=== PATIENT | female | born 1985 | race Caucasian/White ===

== ENCOUNTER 2019-05-29 21:48 | Emergency (ER) | payer OTHER ==
[~2019-05-29] VITALS: Ht 162.6 cm; Wt 75.3 kg
[2019-05-29 21:52] VITALS: BP 149/87
--- NOTE | 2019-05-29 21:55 | NUR ---
TO ED LOBBY AWAITING BED IN DEPT.
[2019-05-29 22:15] LABS: BASOPHILS # (AUTO) 0.1 K/uL (0.00-0.22); BASOPHILS % (AUTO) 0.6 % (0.0-2.0); EOSINOPHILS # (AUTO) 0.1 K/uL (0-0.4); EOSINOPHILS % (AUTO) 1.1 % (0.0-4.0); HEMATOCRIT 33.9 % (36-48); HEMOGLOBIN 10.8 g/dL (12.0-16.0); LYMPHOCYTES # (AUTO) 3.8 K/uL (2.5-16.5); LYMPHOCYTES % (AUTO) 28.1 % (20.5-51.1); MEAN CORPUSCULAR HEMOGLOBIN 20 pg (27-31); MEAN CORPUSCULAR HGB CONC 32 g/dL (33-37); MEAN CORPUSCULAR VOLUME 62.8 fL (80-94); MONOCYTES # (AUTO) 1.1 K/uL (0.8-1.0); MONOCYTES % (AUTO) 8.1 % (1.7-9.3); NEUTROPHILS # (AUTO) 8.4 K/uL (1.8-7.7); NEUTROPHILS % (AUTO) 62.1 % (42.2-75.2); PLATELET COUNT (AUTO) 322 K/uL (140-450); RED CELL DISTRIBUTION WIDTH 15.4 % (11.6-13.7); WHITE BLOOD COUNT (AUTO) 13.6 K/uL (4.8-10.8)
[2019-05-29 22:23] LABS: ANION GAP 10.3 (8-16); CARBON DIOXIDE 27.3 mmol/L (21-32); CREATININE 0.7 mg/dL (0.6-1.3); POTASSIUM 3.6 mmol/L (3.5-5.1)
[2019-05-29 22:30] LABS: ALBUMIN 3.9 g/dL (3.4-5.0); TOTAL BILIRUBIN 0.3 mg/dL (0.0-1.0)
--- NOTE | 2019-05-29 22:42 | NUR ---
PT AMBULATED TO BED #6
[2019-05-29 22:52] LABS: APPEARANCE,URINE CLEAR (CLEAR); BILIRUBIN,URINE NEGATIVE (NEGATIVE); BLOOD, URINE TRACE-I (NEGATIVE); COLOR,URINE YELLOW (YELLOW); LEUKOCYTE ESTERASE ,URINE TRACE (NEGATIVE); NITRITE, URINE NEGATIVE (NEGATIVE); UGLUCOSE NEGATIVE (NEGATIVE)
--- NOTE | 2019-05-29 22:56 | NUR ---
DR. COWAN EVALUATING AT BEDSIDE ON PLASTICS SEASONER OPERATOR PHONE.
--- NOTE | 2019-05-29 23:03 | NUR ---
PT PRESENTS TO ED FOR EVALUATION OF VAGINAL BLEEDING WITH LOWER ABDOMINAL CRAMPING X 2 DAYS. PT , IUP 8 WKS. AAO X4, GCS 15, ABLE TO SPEAK WITH FULL COMPLETE SENTENCES. AMBULATORY WITH STEADY GAIT. RESPIRATIONS EVEN AND UNLABORED, BL LUNG CLEAR. SKIN WARM/PINK/DRY, +PMSC. ABDOMEN SOFT, NON DISTENDED, ACTIVE BOWEL SOUND X4. VSS, STATED LOWER ABDOMINAL PAIN 3/10. AT BEDSIDE EVALUATING PT. WILL CONTINUE TO MONITOR
[2019-05-29 23:07] LABS: RBC,URINE 0-5 /HPF (0-5)
--- NOTE | 2019-05-29 23:36 | NUR ---
US AT BEDSIDE
--- NOTE | 2019-05-30 00:35 | NUR ---
Patient discharged with v/s stable. Written and verbal after care instructions given and explained. Patient alert, oriented and verbalized understanding of instructions. Ambulatory with steady gait. All questions addressed prior to discharge. ID band removed. Patient advised to follow up with PMD. Rx of MACROBID 100 MG given. Patient educated on indication of medication including possible reaction and side effects. Opportunity to ask questions provided and answered. TRANSLATER IN [place]
[2019-05-30 00:36] VITALS: BP 135/85
== END 2019-05-30 00:36 | disposition home or self-care (01) ==
LOC: MED 21:48
DX: O23.42 Unspecified infection of urinary tract in pregnancy, second trimester (principal); O20.9 Hemorrhage in early pregnancy, unspecified; Z3A.18 18 weeks gestation of pregnancy
CPT/HCPCS: 36415; 76801; 80053; 81001; 81025; 84702; 85025; 86900; 86901; 87086; 99284; Q0092

== ENCOUNTER 2019-06-13 19:53 | Emergency (ER) | payer OTHER ==
[~2019-06-13] VITALS: Ht 162.6 cm; Wt 75.3 kg
[2019-06-13 20:05] VITALS: BP 133/90
--- NOTE | 2019-06-13 20:05 | NUR ---
TO BED # 10 AMBULATORY
--- NOTE | 2019-06-13 20:20 | NUR ---
34 YO F BIB SELF AND PRESENTS TO ED C/O HEAVY BRIGHT RED VAGINAL BLEEDING X 1 DAY ACCOMPANIED BY 10/10 CRAMPING LOWER ABD PAIN RADIATING INTO LOWER BACK X 1 DAY. PT STATES SHE IS CHANGING HER PAD ABOUT ONCE EVERY HOUR. PT STATES SHE IS 7 WEEKS . DENIES N/V, FEVER, CHILLS. -- PT AWAKE, ALERT, CALM, COOPERATIVE. ANSWERING QUESTIONS APPROPRIATELY. GENERAL WEAKNESS NOTED. -- SKIN PINK, WARM, DRY. BREATHING EVEN, UNLABORED. PMH-- DENIES RX-- VITAMINS
--- NOTE | 2019-06-13 20:30 | NUR ---
LABS DRAWN AT BEDSIDE BY RN.
--- NOTE | 2019-06-13 20:59 | NUR ---
US AT BEDSIDE.
[2019-06-13 21:13] LABS: BASOPHILS # (AUTO) 0.4 K/uL (0.00-0.22); EOSINOPHILS # (AUTO) 0.2 K/uL (0-0.4); EOSINOPHILS % (AUTO) 1.8 % (0.0-4.0); HEMATOCRIT 36.2 % (36-48); HEMOGLOBIN 11.4 g/dL (12.0-16.0); LYMPHOCYTES # (AUTO) 2.7 K/uL (2.5-16.5); LYMPHOCYTES % (AUTO) 23.3 % (20.5-51.1); MEAN CORPUSCULAR HEMOGLOBIN 20 pg (27-31); MEAN CORPUSCULAR HGB CONC 31 g/dL (33-37); MEAN CORPUSCULAR VOLUME 63.6 fL (80-94); MONOCYTES # (AUTO) 0.6 K/uL (0.8-1.0); NEUTROPHILS # (AUTO) 7.8 K/uL (1.8-7.7); NEUTROPHILS % (AUTO) 66.9 % (42.2-75.2); PLATELET COUNT (AUTO) 332 K/uL (140-450); RED CELL DISTRIBUTION WIDTH 15.5 % (11.6-13.7); WHITE BLOOD COUNT (AUTO) 11.7 K/uL (4.8-10.8)
--- NOTE | 2019-06-13 21:18 | NUR ---
US COMPLETED. PT AMBULATED TO WITH STEADY GAIT TO PROVIDE URINE SAMPLE.
[2019-06-13 21:22] LABS: ANION GAP 13.3 (8-16); CARBON DIOXIDE 27.6 mmol/L (21-32); CREATININE 0.7 mg/dL (0.6-1.3); POTASSIUM 3.9 mmol/L (3.5-5.1)
[2019-06-13 21:27] LABS: ALBUMIN 4.1 g/dL (3.4-5.0); TOTAL BILIRUBIN 0.3 mg/dL (0.0-1.0)
[2019-06-13 21:44] LABS: APPEARANCE,URINE CLEAR (CLEAR); BILIRUBIN,URINE NEGATIVE (NEGATIVE); BLOOD, URINE 3+ (NEGATIVE); COLOR,URINE RED (YELLOW); LEUKOCYTE ESTERASE ,URINE TRACE (NEGATIVE); NITRITE, URINE NEGATIVE (NEGATIVE); PH,URINE 6.5 (5.0-9.0); UGLUCOSE NEGATIVE (NEGATIVE)
[2019-06-13 21:57] LABS: RBC,URINE TOO NUMEROUS TO COUN /HPF (0-5); WBC,URINE 0-5 /HPF (0-5)
[2019-06-13 21:58] LABS: URINE AMORPHOUS URATE 1+ /HPF (None Seen)
--- NOTE | 2019-06-13 22:10 | NUR ---
PT REQUESTING EXTRUSION MANAGER FOR [place]. [employer] EXTRUSION MANAGER REQUESTED FOR [place]. MARKER DELIVERY ON THE PHONE.
--- NOTE | 2019-06-13 22:16 | NUR ---
DR. BURGESS EVALUATING AT BEDSIDE. ON ACUTE CARE CLINICAL NURSE SPECIALIST PHONE.
[2019-06-13 22:30] VITALS: BP 131/86
== END 2019-06-13 22:30 | disposition home or self-care (01) ==
LOC: MED 19:53
DX: O03.9 Complete or unspecified spontaneous abortion without complication (principal)
CPT/HCPCS: 36415; 76801; 80053; 81001; 81025; 85025; 87086; 99284; Q0092; 81002

== ENCOUNTER 2020-05-13 10:32 | Observation (INO) | payer OTHER, SELFPAY ==
[~2020-05-13] VITALS: Ht 162.6 cm; Wt 78.0 kg
[2020-05-13] MEDS ORDERED: PRETAB PO (12:59)
== END 2020-05-13 13:44 | disposition home or self-care (01) ==
LOC: MLD 10:32
PROVIDERS: ADMIT Obstetrics & Gynecology; ATTEND Obstetrics & Gynecology
DX: Z03.818 Encounter for observation for suspected exposure to other biological agents ruled out (principal); O26.853 Spotting complicating pregnancy, third trimester; O09.523 Supervision of elderly multigravida, third trimester; Z3A.32 32 weeks gestation of pregnancy
CPT/HCPCS: 76805; G0378; Q0092; U0003

== ENCOUNTER 2020-07-05 10:15 | Observation (INO) | payer OTHER, SELFPAY ==
[~2020-07-05] VITALS: Ht 162.6 cm; Wt 77.1 kg
[~2020-07-05 10:15] MED LIST: PRETAB PO
[2020-07-05 11:10] VITALS: BP 128/72
== END 2020-07-05 13:30 | disposition home or self-care (01) ==
LOC: MLD 10:15
PROVIDERS: ADMIT Obstetrics & Gynecology; ATTEND Obstetrics & Gynecology
DX: O62.9 Abnormality of forces of labor, unspecified (principal); Z20.828 Contact with and (suspected) exposure to other viral communicable diseases; O09.523 Supervision of elderly multigravida, third trimester; Z3A.38 38 weeks gestation of pregnancy
CPT/HCPCS: 59025; 76805; 81000; G0378; Q0092; U0003